=== PATIENT | male | born 1950 | race Caucasian/White ===

== ENCOUNTER 2017-01-10 10:09 | Day surgery (SDC) | payer OTHER, BC ==
[~2017-01-10 10:09] MED LIST: LIDOCAINE W/ SODIUM BICARB 0.5 ML SYR ONE; Lactated Ringers 1,000 ML PRIMARY IV ONE; ceFAZolin Inj 2gm (Premix) 50 ML IV ONE
[2017-01-10] MEDS ORDERED: MIDAZOLAM 5 MG/1 ML ONE (12:12)
[2017-01-10] MEDS ORDERED: fentaNYL Inj 250 MCG/5 ML VIAL ONE (12:12)
[2017-01-10] MEDS ORDERED: MEPIVACAINE HCL/PF 20 MG/1 ML IV ONE (12:14)
[2017-01-10] MEDS ORDERED: DEXAMETHASONE PF 10 MG/1 ML VIAL ONE (12:14)
[2017-01-10] MEDS ORDERED: BUPIVACAINE 0.5% W/ EPI - 10 ML VIAL ONE (12:14)
[2017-01-10] MEDS ORDERED: DEXAMETHASONE SOD PHOSPHATE 4 MG/1 ML VIAL ONE (12:21)
[2017-01-10] MEDS ORDERED: ONDANSETRON 4 MG/2 ML VIAL ONE (12:21)
[2017-01-10] MEDS ORDERED: EPINEPHrine Inj (1:1,000) 30mg/30ml vial ONE (12:50)
[2017-01-10] MEDS ORDERED: Ropivacaine 0.2% VIAL 20 ML ONE (12:50)
--- NOTE | 2017-01-10 14:04 | CRNA.PROCE ---
Nerve Block Documentation - - Safety Measures: Time Out Taken, Site Verified - - Type of Nerve Block Used: Right Interscalene Block (Analgesia block for Right Shoulder scope which may involve many SAD, Eleazar, Biceps SLAP etc.) Position for Nerve Block: Supine Moniters Used During Block: EKG, SPO2, NIBP Oxygen Sumpplented: Yes Sedation Used - Enter Amount in Comment Field: Midazolam (mg): Yes (3 ), Fentanyl (mcg): Yes (100) Skin Prep Used: ChloroPrep (Twice) Technique: Nerve Stimulator Nerve Block Needle Used: [employer] 50 mm Stimulation Hz: 1 Stimulation Staring mA: 1.6 Stimulation Ending mA: 0.6 Local Anesthetic - Enter Amt in Comment Field: 0.5 % Bupivicaine with Epinephrine 1:200,000 (mL): Yes (20 ml in 3 ml increments), 2 % Mepivacaine (mL) : Yes (10 ml in 3 ml increments) Additives to Nerve Blocks: Dexamethasone (mL): Yes (4 mg)
[2017-01-10] MEDS ORDERED: SUCCINYLCHOLINE CHLORIDE 20 MG/1 ML - 10 ML ONE (14:41)
[2017-01-10] MEDS ORDERED: ePHEDrine Inj 50 MG/ML AMP ONE (15:00)
[2017-01-10] MEDS ORDERED: Lactated Ringers 1,000 ML PRIMARY IV ONE (15:00)
[2017-01-10] MEDS ORDERED: NORMAL SALINE 10 ML SYRINGE FLUSH IVP PRN ×2 (18:00→18:19)
[2017-01-10] MEDS ORDERED: Ondansetron ODT Tab 8 MG TAB PO PRN ×2 (18:00→18:19)
[2017-01-10] MEDS ORDERED: HYDROmorphone 2 MG/1 ML IVP PRN (18:00)
[2017-01-10] MEDS ORDERED: ATROPINE SULFATE 0.4 MG/1 ML VIAL IVP PRN (18:00)
[2017-01-10] MEDS ORDERED: Lactated Ringers 1,000 ML PRIMARY IV SCH ×2 (18:00→18:30)
[2017-01-10] MEDS ORDERED: fentaNYL Inj 100 MCG/2 ML VIAL IVP PRN (18:00)
[2017-01-10] MEDS ORDERED: ONDANSETRON 4 MG/2 ML VIAL IVP PRN ×2 (18:00→18:19)
[2017-01-10] MEDS ORDERED: BISACODYL 5 MG TABLET PO PRN (18:19)
[2017-01-10] MEDS ORDERED: MAG HYDROX/AL HYDROX/SIMETH 30 ML SUSP PO PRN (18:19)
[2017-01-10] MEDS ORDERED: Prochlorperazine Tab 10 MG TAB PO PRN (18:19)
[2017-01-10] MEDS ORDERED: IBUPROFEN 400 MG TABLET PO PRN (18:19)
[2017-01-10] MEDS ORDERED: BISACODYL 10 MG SUPPOSITORY RECTAL PRN (18:19)
[2017-01-10] MEDS ORDERED: ACETAMINOPHEN 325 MG TABLET PO PRN (18:19)
[2017-01-10] MEDS ORDERED: CALCIUM CARBONATE 500 MG (TUMS) CHEWABLE TABLET PO PRN (18:19)
[2017-01-10] MEDS ORDERED: diphenhydrAMINE 25 MG CAPSULE PO PRN (18:19)
[2017-01-10] MEDS ORDERED: MORPHINE SULFATE 2 MG/1 ML IVP PRN (18:19)
[2017-01-10] MEDS ORDERED: HYDROcodone-APAP 10 MG-325 MG TABLET PO ONE (19:49)
[2017-01-10] MEDS: HYDROcodone-APAP 10 MG-325 MG TABLET PO PRN ×2 (20:00→20:15)
[2017-01-10 20:44] VITALS: RESP 16
[2017-01-10 21:33] VITALS: TEMP 97.1
--- NOTE | 2017-01-13 11:27 | OPS SHOULD ---
Diagnosis : Right Shoulder Surgery Referral Reason: Shoulder Cryo Cuff O: The patient was issued a cryo cuff for the right shoulder and instructed in its proper use and care. P: No further therapy is indicated at this time. The patient will begin outpatient physical therapy. CALIN
== END 2017-01-10 20:30 | disposition home or self-care (01) ==
LOC: SDSC 10:09
PROVIDERS: ATTEND Orthopaedic Surgery
DX: M75.41 Impingement syndrome of right shoulder (principal); M19.011 Primary osteoarthritis, right shoulder; M75.111 Incomplete rotator cuff tear or rupture of right shoulder, not specified as traumatic; M75.21 Bicipital tendinitis, right shoulder
CPT/HCPCS: 23430; 29824; 29826; 29827; 87641; J0171; J0690; J2704; J2795; J3010; J0330; J0670; J1100; J2250; J2405; J7120